=== PATIENT | female | born 1995 | race Two or more races ===

== ENCOUNTER → 2017-04-20 16:43 | Outpatient (CLI) | payer SELFPAY ==
[2017-04-26 14:52] LABS: HPV Reflexed? NOT INDICATED
== END ==
PROVIDERS: Visit Provider Obstetrics & Gynecology
DX: Z12.4 Encounter for screening for malignant neoplasm of cervix (principal)
CPT/HCPCS: 88175; G0145

== ENCOUNTER → 2017-06-17 16:34 | Outpatient (CLI) | payer SELFPAY ==
[2017-06-22 09:02] LABS: HPV Reflexed? NOT INDICATED
== END ==
PROVIDERS: Visit Provider Obstetrics & Gynecology
DX: Z12.4 Encounter for screening for malignant neoplasm of cervix (principal)
CPT/HCPCS: 88175; G0145